=== PATIENT | male | born 1970 | race Caucasian/White ===

== ENCOUNTER 2019-01-21 20:44 | Emergency (ER) | payer BC, SELFPAY ==
[2019-01-21 20:49] VITALS: BP 152/97; PULSE 69; RESP 20; TEMP 36.1; O2SAT 95
--- NOTE | 2019-01-21 20:53 | W.ED.GENAD ---
Discharge Plan Disposition Patient Disposition: HOME Condition: Stable Discharge Details Chief Complaint: Urinary Clinical Impression: Kidney stone Primary Care Provider: Yue Kapoor ED Provider: Fadi Levi Home Meds and New Rx's Prescriptions: New ondansetron 4 mg tablet,disintegrating 4 mg PO Q8H PRN (Reason: nausea and vomiting) Qty: 30 RF: 0 Continued multivitamin Tablet 1 tab PO DAILY RF: 0 lisinopril 20 mg tablet 20 mg PO DAILY Qty: 90 RF: 3 sertraline 100 mg tablet 100 mg PO DAILY Qty: 90 RF: 3 flaxseed oil 1,000 MG capsule 1,000 mg PO DAILY RF: 0 Discharge Instructions Instructions: Kidney Stones (ED) Additional Instructions: you can take 1000mg tylenol and 600mg ibuprofen every 6 hours for pain as needed follow up with your primary care provider within 1-2 weeks if you have high fevers, severe worsening pain or persistent vomit return to the emergency department Medical Decision Making 48 yo male with hx of HTN and prior kidney stones comes in with acute onset suprapubic pain. States he felt well all day until 2-3 hours ago when he had sudden onset of pain loczlied to the suprapubic region. denies any back pain, changes in bowel habits, has had some discomfort with urination since this started. He has mild suprapubic pain on exam without guarding otherwise no other tenderness elsewhere. Suspect kidney stone, will obtain UA and also obtian ct to confirm. Has no periotneal signs or other findings on exam to suggest other surgical pathology such as mesenteric ischemia or appendicitis labs unremarkqble, CT shows kidney stone at distall right UVJ. He has no pain now. Declines opiates. Will d/c and offered urology referral but wants to see his pcp instead. Return precautions given Differential Diagnosis Differential Diagnosis: kidney stone, prostitis, pyelo HPI General Mode of arrival: ambulatory. Date/Time Provider Initiated Documentation: 01/21/19 20:45. Limitations to Documentation: no limitations. Information obtained by: patient. History of Present Illness 48 year old M presents to the emergency department with the chief complaint of suprapubic pain, described as moderate, with intensity rated at 5. Quality is described as stabbing, No relieving factors improve symptom(s), No exacerbating factors reported . Patient notes nausea/vomiting. Patient did receive the following treatments prior to arrival, none Related Data Home Medications Medication Instructions Recorded Confirmed flaxseed oil 1,000 mg PO DAILY 12/14/16 05/09/18 lisinopril 20 mg tablet 20 mg PO DAILY #90 tab 12/07/18 12/07/18 multivitamin 1 tab PO DAILY 12/07/18 sertraline 100 mg tablet 100 mg PO DAILY #90 tab-cap 12/07/18 12/07/18 ondansetron 4 mg PO Q8H PRN #30 tab 01/21/19 Previous Rx's Medication Instructions Recorded lisinopril 20 mg tablet 20 mg PO DAILY #90 tab 12/07/18 sertraline 100 mg tablet 100 mg PO DAILY #90 tab-cap 12/07/18 ondansetron 4 mg PO Q8H PRN #30 tab 01/21/19 Allergies Allergy/AdvReac Type Severity Reaction Status Date / Time pollen Allergy Unknown Uncoded 05/09/18 11:01 Review of Systems Review of Systems ROS Unobtainable: All systems reviewed & are unremarkable except as noted in HPI and below Constitutional Constitutional: Denies fever(s) and Denies weakness Cardiovascular Cardiovascular: Denies chest pain and Denies dyspnea Respiratory Respiratory: Denies cough and Denies dyspnea Integumentary/Breasts Skin/Breast: Denies rash Neurologic Neurologic: Denies weakness PFSH Family History Mother Depression Father Diabetes Social History (Updated 12/07/18 @ 15:26 by Reshma Pastor RN) Smoking/Tobacco Use Status: Never Alcohol Intake: current Alcohol Intake frequency: holidays/special occasions only Substance use type: does not use Number of Children: 2 current occupation: Director [employer] Current gender identity: male What type of physical activity do you participate in: none Do you feel safe at home: Yes Do you feel safe in your relationship?: Yes Exam Const General: no acute distress Orientation: alert HENMT Head: normal to inspection Ears: external ears normal General nose exam: external nose normal Mouth: moist mucous membranes Eyes General: appearance normal, both eyes and all related structures Neck Neck: normal visual inspection Resp Effort & Inspection: normal respiratory effort and able to speak in complete sentences Cardio Rate: regular rate GI Palpation: soft Skin General skin exam: no rashes or lesions noted Neuro General: alert and oriented x3 Extrem General: normal to inspection Psych Mental Status: mental status grossly normal
[2019-01-21 20:58] LABS: Bilirubin Negative (Negative); Blood Large (Negative); Clarity Clear (Clear); Glucose Negative (Negative); Ketones Negative (Negative); Leukocyte Esterase Negative (Negative); Nitrite Negative (Negative); Specific Gravity 1.025 (1.005-1.025); Urobilinogen 0.2 EU/dL (Up TO 0.2)
[2019-01-21] MEDS: Normal Saline Flush 10 ML SYR IVP (21:05)
[2019-01-21] MEDS: Normal Saline 1,000 ML 1000 ML IV (21:05)
[2019-01-21] MEDS: Ondansetron 4 MG/2 ML VIAL IVP (21:10)
[2019-01-21] MEDS: Ketorolac 15 MG/ML VIAL IVP (21:15)
--- NOTE | 2019-01-21 21:20 | DI.CT_ITS ---
EXAM: CT RENAL COLIC WO CLINICAL HISTORY: right flank pain. TECHNIQUE: COMPARISON: RENAL COLIC WO CONTRAST from 05/28/2012 FINDINGS: CT examination of the abdomen and pelvis was performed without contrast administration. Images obtai dory through the lung bases are unremarkable. Note is made of hepatic steatosis. Gallbladder and jewell e ducts are CT normal. Pancreas is unremarkable. Spleen appears normal. Low-attenuation 1 cm left adrenal nodule and possible tiny right adrenal nodule noted consistent with adenomas. Left kidney un remarkable. No left-sided obstruction or calcification. On the right there is moderate hydronephrosis and hydroureter to the level of the distal ureter where there is an obstructing 3 millimeter in diameter stone. Urinary bladder is essentially empty. Abdominal aorta is of normal diameter. No abdominal or pelvic adenopathy. No significant abdominal wall hernia seen. Appendix is normal. No evidence of diverticulitis or bowel obstruction. IMPRESSION: Obstructing 3 millimeter in diameter distal right ureteral calculus. No other significant findings.
[2019-01-21 21:26] LABS: Bacteria Rare HPF (Negative); C & S Indicated? No; Casts Negative LPF (Negative); Crystals Negative HPF (Negative); Epithelial Cells Negative HPF (Negative); Mucus Negative (Negative); Other Cells Negative (Negative); RBC >50 (0-2); WBC Negative HPF (0-5)
[2019-01-21 21:31] LABS: Abs Immature Grans 0.04 k/cumm (0.0-0.09); Absolute Basophil Count 0.03 k/cumm (0.0-0.2); Absolute Eosinophil Count 0.08 k/cumm (0.0-0.7); Absolute Lymphocyte Count 2.05 k/cumm (1.2-3.4); Absolute Monocyte Count 1.07 k/cumm (0.11-0.7); Absolute Neutrophil Count 8.31 k/cumm (1.2-6.7); Basophils % 0.3; Eosinophils % 0.7; HCT 42.7 % (40.0-50.0); HGB 14.7 g/dL (13.5-17.5); Immature Grans % 0.3; Lymphocytes % 17.7; Mean Corp. HGB Concentration 34.4 g/dL (32.0-36.0); Mean Corpuscular Hemoglobin 28.4 pg (27.0-33.0); Mean Corpuscular Volume 82.6 fL (80-95); Mean Platelet Volume 10.5 fL (8.0-11.0); Monocytes % 9.2; Neutrophils % 71.8; Platelet Count 212 x1000/uL (130-400); RBC 5.17 m/cumm (4.50-6.00); RBC Distribution Width 13.3 % (11.8-14.1); White Blood Cell Count 11.58 k/cumm (4.4-10.8)
[2019-01-21 21:43] LABS: ALT 42 U/L (16-63); AST 19 U/L (15-37); Albumin 3.9 g/dL (3.4-5.0); Alkaline Phosphatase 71 U/L (46-116); Anion Gap 10.2 mmol/L (3-11); BUN 14 mg/dL (7-18); Bilirubin, Total 0.8 mg/dL (0.2-1.0); CO2 24.8 mmol/L (21.0-32.0); CREATININE 1.02 mg/dL (0.70-1.30); Calcium 8.5 mg/dL (8.5-10.1); Chloride 104 mmol/L (98-107); Glucose 154 mg/dL (70-100); Potassium 3.4 mmol/L (3.5-5.1); Sodium 139 mmol/L (136-145); Total Protein 7.3 g/dL (6.4-8.2)
--- NOTE | 2019-01-21 21:54 | DI.VRAD_ITS ---
PROCEDURE INFORMATION: Exam: CT Abdomen And Pelvis Without Contrast Exam date and time: 01/21/2019 9:21 PM Clinical history: 48 years old, male; Prior surgery; Surgery date: 6+ months; Surgery type: Hernia repair; Patient HX: HX of kidney stones, R flank pain, vomiting TECHNIQUE: Imaging protocol: Computed tomography of the abdomen and pelvis without contrast. Radiation optimization: All CT scans at this facility use at least one of these dose optimization techniques: automated exposure control; mA and/or kV adjustment per patient size (includes targeted exams where dose is matched to clinical indication); or iterative reconstruction. COMPARISON: CT RENAL COLIC WO CONTRAST 05/28/2012 12:07 PM FINDINGS: Liver: Marked diffuse diminished attenuation of the liver consistent with significant fatty infiltration. Gallbladder and bile ducts: The gallbladder is unremarkable. Pancreas: Pancreas is unremarkable. Spleen: The spleen is normal. Adrenals: There is a 1.4 cm left adrenal nodule in the lateral aspect of the gland in addition to a 1.0 cm left adrenal nodule in the inferior aspect of the gland with low CT numbers consistent with an adenoma. The right adrenal gland is normal. Kidneys and ureters: There is mild to moderate obstructive uropathy on the right with dilatation of the right ureter up to the right UVJ were a 3 mm calculus is identified in the distal right ureter. There is mild bilateral perinephric stranding. Left kidney is otherwise unremarkable. Stomach and bowel: Unremarkable. No obstruction. No mucosal thickening. Appendix: No evidence of appendicitis. Intraperitoneal space: Unremarkable. No free air. No significant fluid collection. Vasculature: Unremarkable. No abdominal aortic aneurysm. Lymph nodes: No retroperitoneal lymphadenopathy is identified. Bladder: Unremarkable as visualized. Reproductive: Prostate is enlarged. Bones/joints: Unremarkable. No acute fracture. Soft tissues: There are small bilateral fat-containing inguinal hernias. IMPRESSION: 1. There is mild to moderate obstructive uropathy on the right with dilatation of the right ureter up to the right UVJ were a 3 mm calculus is identified in the distal right ureter. 2. Marked diminished attenuation liver consistent with significant fatty changes. Please correlate with the patient's clinical laboratory findings. 3. Left adrenal adenomas as described above. Dictated and Authenticated by: Dell Taveras MD. Ordering:SULLY Aponte MD
[2019-01-21 22:00] LABS: INR 1.1 (0.9-1.1); PTT Activated 22.7 sec (21.0-31.4); Prothrombin Time 10.9 sec (9.3-11.0)
== END 2019-01-21 22:32 | disposition home or self-care (01) ==
PROVIDERS: Emergency Provider Emergency Medicine; PCP Nurse Practitioner
DX: N20.1 Calculus of ureter (principal); I10 Essential (primary) hypertension; Z87.442 Personal history of urinary calculi
CPT/HCPCS: 36415; 80053; 96361; 96374; 96375; 99284; 74176; 81003; 81015; 85025; 85610; 85730; J1885; J2405

== ENCOUNTER 2019-03-20 14:56 | Emergency (ER) | payer BC, SELFPAY ==
[2019-03-20] VITALS (22 sets, daily range): BP systolic 139–157; BP diastolic 78–103; PULSE 61–89; RESP 8–29; TEMP 36; O2SAT 92–98
--- NOTE | 2019-03-20 15:26 | ED.GENADUL_ITS ---
Discharge Plan Disposition Patient Disposition: HOME Condition: Improving Discharge Details Chief Complaint: FlankPain Clinical Impression: Calculus of distal right ureter Primary Care Provider: Yue Kapoor ED Provider: Jose Theodore Home Meds and New Rx's Prescriptions: New tamsulosin [Flomax] 0.4 mg capsule 0.4 mg PO DAILY Qty: 5 RF: 0 Continued multivitamin Tablet 1 tab PO DAILY RF: 0 lisinopril 20 mg tablet 20 mg PO DAILY Qty: 90 RF: 3 sertraline 100 mg tablet 100 mg PO DAILY Qty: 90 RF: 3 flaxseed oil 1,000 MG capsule 1,000 mg PO DAILY RF: 0 Discharge Instructions Instructions: Kidney Stones (ED), How to Strain Your Urine (ED) Additional Instructions: Please strain your urine for a kidney stone and save it to be analyzed in the lab. We have asked care management to arrange a follow-up for you in urology clinic. Home to rest this evening. May continue small, frequent sips of fluids to maintain hydration. Please take Flomax once daily. Do not stand up quickly while taking this medication as can cause mild lightheadedness. May stop the medication if you feel you have passed a kidney stone. May use the provided hydrocodone with Tylenol in it if needed for severe pain. Alternatively, you may use ibuprofen 600 to 800 mg every 8 hours. Return to the emergency department for any acute concerns. Medical Decision Making 48-year-old male presents with abrupt onset of right flank pain that seem to progressed to suprapubic pain over hours time today. Associated with nausea. He did not note a fever. He states he has had 3 previous kidney stones. He arrives to the ED with a temp of 36, pulse 72, blood pressure 155/78 with ongoing discomfort. IV was placed, labs and urinalysis obtained, patient referred for noncontrast CT scan given high probability of recurrent ureteral calculus. CT reveals a 4.4 mm distal right ureteral calculus with moderate dilatation of the ureter and collecting system. Labs reveal a white blood cell count of 13, hematocrit 45, platelets 213. Chemistries a slight anion gap of 11, normal BUN and creatinine. Urinalysis with ketones and blood, negative nitrites and negative leuk esterase. Patient's pain improved with parenteral analgesia in the ED. He was given Flomax for ureteral dilatation/relaxation. He is improved. He is a good candidate for outpatient management. We will continue Flomax. He will follow- up with urology. He understands homecare and return precautions. HPI General Mode of arrival: ambulatory . Date/Time Provider Initiated Documentation: 03/20/19 14:57 . Limitations to Documentation: no limitations . Information obtained by: patient and family . History of Present Illness 48 year old M presents to the emergency department with the chief complaint of Right flank and suprapubic pain for hours, described as moderate and similar to prior episodes, and is localized to the back, abdomen, pelvis and right. Patient reports no radiation. Patient started experiencing this hour(s) and it has been intermittent. No relieving factors improve symptom(s), No exacerbating factors reported . Patient notes nausea/vomiting; denies fever/chills. Patient did receive the following treatments prior to arrival, NSAID Related Data Home Medications Medication Instructions Recorded Confirmed flaxseed oil 1,000 mg PO DAILY 12/14/16 03/20/19 lisinopril 20 mg tablet 20 mg PO DAILY #90 tab 12/07/18 03/20/19 multivitamin 1 tab PO DAILY 12/07/18 03/20/19 sertraline 100 mg tablet 100 mg PO DAILY #90 tab-cap 12/07/18 03/20/19 tamsulosin [Flomax] 0.4 mg PO DAILY #5 cap 03/20/19 Previous Rx's Medication Instructions Recorded lisinopril 20 mg tablet 20 mg PO DAILY #90 tab 12/07/18 sertraline 100 mg tablet 100 mg PO DAILY #90 tab-cap 12/07/18 tamsulosin [Flomax] 0.4 mg PO DAILY #5 cap 03/20/19 Allergies Allergy/AdvReac Type Severity Reaction Status Date / Time pollen Allergy Unknown Uncoded 03/20/19 15:12 General Stated Complaint: Abd Prob RUSSEL: 3 Review of Systems Narrative: 6 systems reviewed and otherwise negative [facility] Medical History Hepatic steatosis (Acute) Family History Mother Depression Father Diabetes Social History Smoking/Tobacco Use Status: Never Alcohol Intake: current Alcohol Intake frequency: holidays/special occasions only Substance use type: does not use Number of Children: 2 current occupation: Vice President [employer] Current gender identity: male What type of physical activity do you participate in: none Do you feel safe at home: Yes Do you feel safe in your relationship?: Yes Exam Narrative Exam Narrative: GEN: awake, alert, oriented 3. Pleasant, well groomed, interactive. HEAD: Normocephalic, atraumatic ENT: Mucous membranes moist, oropharynx unremarkable, External ear exam unremarkable EYES: PERRL, EOMI NECK: Full ROM, no MARGARET, no menigismus CHEST/RESP: Nontender, clear to auscultation bilateral, no wheeze/rhonchi/rales CARDIOVASCULAR: RRR, no murmur, rub julius. 2+ Rad pulse bilateral ABDOMEN: Soft, mild suprapubic tenderness to palpation without rebound or guarding, no mass. +Bowel sounds. Right flank tenderness to percussion, minimal EXT: Full ROM, no edema, no rash Neuro: Grossly normal neurologic exam, conversant, interactive. Psych: Speech fluent, thoughts congruent, affect normal Course Vital Signs Vital signs: Vital Signs Temperature 36 C L 03/20/19 15:07 Pulse 72 03/20/19 15:07 Respiratory Rate 16 03/20/19 15:07 Blood Pressure 155/78 H 03/20/19 15:07 Pulse Oximetry 97 03/20/19 15:07 Temperature 36 C L 03/20/19 15:07 Temperature Source Skin 03/20/19 15:07 Pulse 72 03/20/19 15:07 Respiratory Rate 16 03/20/19 15:07 Respiratory Effort Non-Labored 03/20/19 15:07 Blood Pressure 155/78 H 03/20/19 15:07 Blood Pressure Position Sitting 03/20/19 15:07 Pulse Oximetry 97 03/20/19 15:07 Pain Level 3 03/20/19 15:07
[2019-03-20] MEDS: Normal Saline 1,000 ML 150 ML IV (15:30)
[2019-03-20] MEDS: Ketorolac 15 MG/ML VIAL IVP (15:40)
[2019-03-20] MEDS: Ondansetron 4 MG/2 ML VIAL IVP ×2 (15:40→16:26)
[2019-03-20 15:56] LABS: Abs Immature Grans 0.04 k/cumm (0.0-0.09); Absolute Lymphocyte Count 0.75 k/cumm (1.2-3.4); Absolute Monocyte Count 0.72 k/cumm (0.11-0.7); Basophils % 0.1; HCT 45.8 % (40.0-50.0); HGB 15.5 g/dL (13.5-17.5); Immature Grans % 0.3; Lymphocytes % 5.4; Mean Corp. HGB Concentration 33.8 g/dL (32.0-36.0); Mean Corpuscular Hemoglobin 27.8 pg (27.0-33.0); Mean Corpuscular Volume 82.2 fL (80-95); Mean Platelet Volume 10.8 fL (8.0-11.0); Monocytes % 5.2; Platelet Count 213 x1000/uL (130-400); RBC 5.57 m/cumm (4.50-6.00); RBC Distribution Width 12.9 % (11.8-14.1); White Blood Cell Count 13.82 k/cumm (4.4-10.8)
[2019-03-20 15:59] LABS: Absolute Basophil Count 0.01 k/cumm (0.0-0.2)
--- NOTE | 2019-03-20 16:03 | DI.CT_ITS ---
EXAM: CT RENAL COLIC WO CLINICAL HISTORY: R flank and suprapubic pain TECHNIQUE: Imaging Protocol: Axial computed tomography images with coronal and sagittal reformatted images were created and reviewed. CONTRAST MATERIAL: Intravenous: Omnipaque 350 Contrast volume:0 mL contrast route:IV - Oral: No COMPARISON: CT RENAL COLIC WO from 01/21/2019 FINDINGS: ABDOMEN: Lung Bases: Normal where visualized. Liver: There is hepatic steatosis no measurable mass. Gallbladder and biliary tract: No radiodense calculus or dilation. Pancreas: Normal density, no abnormal calcifications or inflammatory process. Spleen: Normal. Kidneys: Normal size, contour and axis. There is a 5 millimeter stone at the right ureterovesicular j unction causing moderate hydronephrosis. No masses seen. Adrenal glands: No masses seen. Abdominal Aorta: Abdominal portion non-dilated. PELVIS: Bladder: Symmetric distention, no gross wall thickening. Reproductive organs: Unremarkable. Bowel: No obstruction or bowel wall thickening. Peritoneal cavity: No ascites, collection or mesenteric inflammatory response. Bones: Within normal limits. IMPRESSION: 5 millimeter right UVJ stone causing moderate hydronephrosis. DATA REPOSITORY: All CT scans at this facility are submitted to the National Radiology Data Registry (NRDR) Dose Index Registry (DIR) with the [employer] (ACR). RADIATION OPTIMIZATION: All CT scans at this facility use at least one of these dose optimization te chniques: automated exposure control; mA and/or kV adjustment per patient size (includes targeted exa ms where dose is matched to clinical indication); or iterative reconstruction.
[2019-03-20 16:17] LABS: ALT 49 U/L (16-63); AST 22 U/L (15-37); Albumin 4.2 g/dL (3.4-5.0); Alkaline Phosphatase 70 U/L (46-116); Anion Gap 11.7 mmol/L (3-11); BUN 15 mg/dL (7-18); Bilirubin, Total 1.2 mg/dL (0.2-1.0); CO2 25.3 mmol/L (21.0-32.0); Calcium 8.8 mg/dL (8.5-10.1); Chloride 103 mmol/L (98-107); Glucose 168 mg/dL (74-106); Potassium 3.9 mmol/L (3.5-5.1); Sodium 140 mmol/L (136-145); Total Protein 7.8 g/dL (6.4-8.2)
[2019-03-20] MEDS: HYDROmorphone 2 MG/ML VIAL 0.5 MG IVP (16:26)
--- NOTE | 2019-03-20 16:30 | DI.VRAD_ITS ---
PROCEDURE INFORMATION: Exam: CT Abdomen And Pelvis Without Contrast Exam date and time: 03/20/2019 3:26 PM Age: 48 years old Clinical history: Other: RT flank pain and suprapubic pain. ; Patient HX: HX of kidney stones TECHNIQUE: Imaging protocol: Computed tomography of the abdomen and pelvis without contrast. Radiation optimization: All CT scans at this facility use at least one of these dose optimization techniques: automated exposure control; mA and/or kV adjustment per patient size (includes targeted exams where dose is matched to clinical indication); or iterative reconstruction. COMPARISON: CT RENAL COLIC WO 01/21/2019 9:14 PM FINDINGS: Liver: Hepatic steatosis Gallbladder and bile ducts: Normal. No calcified stones. No ductal dilation. Pancreas: Normal. No ductal dilation. Spleen: Normal. No splenomegaly. Adrenals: Normal. No mass. Kidneys and ureters: 5x 4.4 millimeter distal RIGHT ureteral calculus causes moderate dilatation of the RIGHT ureter, and RIGHT collecting system. The RIGHT kidney is edematous and there is RIGHT perirenal stranding. Stomach and bowel: Unremarkable. No obstruction. No mucosal thickening. Appendix: Normal appendix Intraperitoneal space: Unremarkable. No free air. No significant fluid collection. Vasculature: Unremarkable. No abdominal aortic aneurysm. Lymph nodes: Unremarkable. No enlarged lymph nodes. Bladder: Unremarkable as visualized. Reproductive: Unremarkable as visualized. Bones/joints: Unremarkable. No acute fracture. Soft tissues: Unremarkable. IMPRESSION: 5 x4.4 millimeter distal RIGHT ureteral calculus causes moderate dilatation of the RIGHT ureter, and RIGHT collecting system. The RIGHT kidney is edematous and there is RIGHT perirenal stranding. Dictated and Authenticated by: Sarah Mckeon MD. Ordering:MARSHA Garcia MD
[2019-03-20] MEDS: HYDROmorphone 2 MG/ML VIAL (16:51)
[2019-03-20] MEDS: Normal Saline 50 ML (16:53)
[2019-03-20 18:02] LABS: Bilirubin Negative (Negative); Blood Trace-intact (Negative); Clarity Sl Cloudy (Clear); Glucose Negative (Negative); Ketones 40 mg/dL (Negative); Leukocyte Esterase Negative (Negative); Nitrite Negative (Negative); Urobilinogen 0.2 EU/dL (Up TO 0.2); pH 7.5 (5-8)
[2019-03-20 18:09] LABS: Epithelial Cells Negative HPF (Negative); WBC Negative HPF (0-5)
[2019-03-20 18:10] LABS: Bacteria Negative HPF (Negative); C & S Indicated? No; Crystals Few Amorphous HPF (Negative); Mucus Negative (Negative)
--- NOTE | 2019-03-20 18:20 | NUR.NOTE ---
Nursing Note: faxed referal to urology on 03/20/19
[2019-03-20] MEDS: Tamsulosin 0.4 MG CAPCR PO (18:37)
== END 2019-03-20 18:45 | disposition home or self-care (01) ==
PROVIDERS: Emergency Provider Emergency Medicine; PCP Nurse Practitioner
DX: N13.2 Hydronephrosis with renal and ureteral calculous obstruction (principal); I10 Essential (primary) hypertension; Z87.442 Personal history of urinary calculi
CPT/HCPCS: 36415; 80053; 96361; 96374; 96375; 96376; 99284; 74176; 81003; 81015; 85025; J1885; J2405

== ENCOUNTER 2019-09-21 02:43 | Outpatient (CLI) | payer BC, SELFPAY ==
--- NOTE | 2019-09-21 08:15 | DI.CT_ITS ---
EXAM: CT ABDOMEN WO/W CLINICAL HISTORY: f/u 2 adrenal nodules,LT ADRENAL MASS,E27.8 TECHNIQUE: Imaging Protocol: Axial computed tomography images with coronal and sagittal reformatted images were created and reviewed CONTRAST MATERIAL: Intravenous: Omnipaque 350 Contrast volume:100 mL Oral: No COMPARISON: CT CT RENAL COLIC WO from 01/21/[address] RENAL COLIC WO from 03/20/2019 FINDINGS: ABDOMEN: Lung Bases: Normal where visualized. Liver: Hepatic steatosis. No measurable mass. Portal, Superior Mesenteric, and Splenic Veins: Unremarkable. Gallbladder and Biliary Tract: No radiodense calculus or dilation. Pancreas: Normal density, no abnormal calcifications or inflammatory process. Spleen: Normal. Adrenals: Normal right adrenal gland. Two stable left adrenal nodules. The larger nodule measures 1 .4 cm. The smaller nodule measures 1.0 cm. Kidneys: Normal size, contour and axis. No radiodense stones or obstructive uropathy. No masses seen. Abdominal Aorta: Abdominal portion non-dilated. Mild atherosclerosis. Bowel: No obstruction or bowel wall thickening. Peritoneal Cavity: No ascites, collection or mesenteric inflammatory response. Lymph Nodes: Within normal limits. Bones: Unremarkable. Soft Tissues: Unremarkable. Portions of the anterior abdominal wall were not included. IMPRESSION: Stable left adrenal nodules. Hepatic steatosis. RADIATION DOSE DELIVERED: 2,044.79mGy.cm Total DLP DATA REPOSITORY: All CT scans at this facility are submitted to the National Radiology Data Registry (NRDR) Dose Index Registry (DIR) with the [employer] (ACR). RADIATION OPTIMIZATION: All CT scans at this facility use at least one of these dose optimization te chniques: automated exposure control; mA and/or kV adjustment per patient size (includes targeted exa ms where dose is matched to clinical indication); or iterative reconstruction.
[2019-09-21 13:49] LABS: ALT 49 U/L (16-63); AST 17 U/L (15-37); Albumin 3.8 g/dL (3.4-5.0); Alkaline Phosphatase 66 U/L (46-116); Anion Gap 8.8 mmol/L (3-11); BUN 11 mg/dL (7-18); Bilirubin, Total 0.9 mg/dL (0.2-1.0); CO2 26.2 mmol/L (21.0-32.0); CREATININE 1.05 mg/dL (0.70-1.30); Calcium 8.6 mg/dL (8.5-10.1); Calculated LDL 72 mg/dL (<100); Chloride 107 mmol/L (98-107); Cholesterol 143 mg/dL (<200); Glucose 131 mg/dL (74-106); HDL Cholesterol 25 mg/dL (40-60); Potassium 3.5 mmol/L (3.5-5.1); Sodium 142 mmol/L (136-145); Total Protein 6.9 g/dL (6.4-8.2); Triglyceride 233 mg/dL (<150)
[2019-09-21 14:05] LABS: Hemoglobin A1C 6.4 % (3.8-5.6)
[2019-09-21] MEDS: Normal Saline - Diluent 50 ML VIAL IV (14:41)
[2019-09-21] MEDS: Omnipaque 350 MG/ML 100 ML BTL IJ (14:42)
== END 2019-09-21 03:03 ==
PROVIDERS: PCP Nurse Practitioner; Visit Provider Nurse Practitioner
DX: E27.8 Other specified disorders of adrenal gland (principal); K76.0 Fatty (change of) liver, not elsewhere classified; I10 Essential (primary) hypertension; R73.01 Impaired fasting glucose
CPT/HCPCS: 80053; 80061; 74170; 82565; 83036; J3490

== ENCOUNTER 2020-01-02 09:07 | Emergency (ER) | payer BC, SELFPAY ==
[2020-01-02 09:11] VITALS: BP 135/87; PULSE 89; RESP 18; TEMP 36.5; O2SAT 96
--- NOTE | 2020-01-02 09:20 | ED.GENADUL_ITS ---
Discharge Plan Disposition Patient Disposition: HOME Condition: Stable Discharge Details Clinical Impression: Cholelithiases Primary Care Provider: Yue Kapoor ED Provider: Diego Ritchie Home Meds and New Rx's Prescriptions: Continued cholecalciferol (vitamin D3) 4,000 unit capsule 4,000 unit PO DAILY RF: 0 flaxseed oil 1,000 MG capsule 1,000 mg PO DAILY RF: 0 lisinopril 20 mg tablet 20 mg PO DAILY Qty: 90 RF: 3 sertraline 100 mg tablet 100 mg PO DAILY Qty: 90 RF: 3 Discharge Instructions Instructions: Gallstones (ED) Additional Instructions: [id number] Tylenol and/or Motrin as directed for discomfort. Dietary restrictions as we discussed. Please watch for new or worsening symptoms and return immediately to the ER. Otherwise I recommend reaching out to the surgical team later today or tomorrow for prompt outpatient reevaluation. Referrals: Rosanne Hawkins, [OSTEOPATHIC DOCTOR] - Medical Decision Making 49-year-old gentleman with a history of hypertension and depression presents with right upper quadrant, right lower chest discomfort that began yesterday. He reports that positioning can make the pain both worse or better. Taking a deep breath makes the pain worse. Clinically he has a positive Suero sign. Patient appears well, nontoxic, blood pressure 135/87. Pulse 89, he is afebrile and satting 96% on room air. Believe the most likely diagnosis is cholelithiasis, cholecystitis, however certainly cannot exclude hepatitis, gastritis, pancreatitis, peptic ulcers, atypical chest pain. Pain is on the right side, not ripping or tearing, low suspicion for dissection. Given the PERC criteria, will not obtain d-dimer, extremely low suspicion of PE. Will obtain IV access, obtain CBC, CMP, lipase, urinalysis, troponin and EKG. Will obtain ultrasound of the right upper quadrant abdomen. Patient is afebrile, white count is normal at 8.68. Total bilirubin is slightly elevated at 1.3, LFTs otherwise unremarkable. Initial troponin less than 0.05. Ultrasound reveals cholelithiasis with a positive sonographic Suero sign but no evidence of acute cholecystitis. Hepatomegaly and fatty liver disease noted Given his ultrasound findings and right upper quadrant discomfort I will discuss the case with our surgical team. Case discussed with Dr. Hawkins, recommends controlling the patient's pain and she will be happy to follow the patient in her office. Surgical intervention not required today. Finding, my conversation with Dr. Hawkins with patient. Will provide 30 IV Toradol and reassess. Upon reevaluation patient is pain-free. Able to move freely without any exacerbation of his discomfort. We discussed strict return precautions, otherwise he will contact the surgical office later today or tomorrow for prompt outpatient reevaluation. We also discussed dietary restrictions. Patient has no additional questions or concerns Medical Records Medical records reviewed: Yes I reviewed the patient's medical records. Lab Data Lab results reviewed: Yes I reviewed the patient's lab results. Lab results narrative: Laboratory Tests Range/Units 01/02/20 01/02/20 01/02/20 09:50 09:50 09:50 WBC (4.4-10.8) 10^3/uL 8.68 RBC (4.36-5.78) 10^6/uL 5.69 Hgb (13.5-17.5) g/dL 15.6 Hct (40.0-50.0) % 47.7 MCV (80-95) fL 83.8 MCH (27.0-33.0) pg 27.4 MCHC (32.0-36.0) % 32.7 RDW (11.8-14.1) % 12.6 Plt Count (130-400) 10^3/uL 208 MPV (8.0-11.0) fL 10.4 Immature Gran % 0.3 Neutrophils % 74.7 Lymphocytes % 15.1 Monocytes % 9.1 Eosinophils % 0.3 Basophils % 0.5 Nucleated RBC % % 0 Absolute Neutrophils (1.2-6.7) 10^3/uL 6.48 Absolute Lymphocytes (1.2-3.4) 10^3/uL 1.31 Absolute Monocytes (0.1-0.8) 10^3/uL 0.79 Absolute Eosinophils (0.0-0.7) 10^3/uL 0.03 Absolute Basophils (0.0-0.2) 10^3/uL 0.04 Sodium (136-145) mmol/L 138 Potassium (3.5-5.1) mmol/L 4.0 Chloride (98-107) mmol/L 103 Carbon Dioxide (21.0-32.0) mmol/L 24.8 Anion Gap (3-11) mmol/L 10.2 BUN (7-18) mg/dL 14 Creatinine (0.70-1.30) mg/dL 0.91 Estimated GFR/1.73 m2 (mL/min/1.73m2) >= 60.00 Glucose (74-106) mg/dL 130 H Calcium (8.5-10.1) mg/dL 8.9 Total Bilirubin (0.2-1.0) mg/dL 1.3 H AST (15-37) U/L 17 ALT (16-63) U/L 39 Alkaline Phosphatase (46-116) U/L 66 Troponin I (<0.06) ng/mL < 0.05 Total Protein (6.4-8.2) g/dL 7.7 Albumin (3.4-5.0) g/dL 4.0 Lipase (73-393) U/L 92 Urine Color (Yellow) Yellow Urine Clarity (Clear) Clear Urine pH (5-8) 5.5 Ur Specific [place] (1.005-1.025) >= 1.030 H Urine Protein (Negative) mg/dL Negative Urine Ketones (Negative) mg/dL Negative Urine Blood (Negative) Negative Urine Nitrite (Negative) Negative Urine Bilirubin (Negative) Negative Urine Urobilinogen (Up TO 0.2) EU/dL 0.2 Ur Leukocyte Esterase (Negative) Negative Urine Glucose (Negative) mg/dL Negative ECG Data Attestation: I personally reviewed and interpreted this ECG (s) as follows: Interpretation: Please see official report by Dr. Theodore. Sinus rhythm, ventricular rate of 77. No STEMI HPI General Mode of arrival: ambulatory . Date/Time Provider Initiated Documentation: 01/02/20 09:17 . Limitations to Documentation: no limitations . Information obtained by: patient . HPI Narrative: This is a 49-year-old gentleman with history of hypertension, depression, presenting to the ER today at the request of his primary care office. He developed right anterior lower chest wall, right upper quadrant abdominal discomfort that began yesterday afternoon. Is intermittent, sharp and crampy in nature. Pain can be made both worse and better with certain positions and movement. Reports that taking a deep breath does worsen his discomfort. He denies any fever, shortness of breath, cough, radiation of pain into his back, nausea, vomiting, diarrhea, constipation. He denies any change of his symptoms with food. Ate dinner last night normally, did not have breakfast today. Reports a history of umbilical hernia surgery but no other abdominal surgeries. Patient denies history of smoking, alcohol use, drug use. Related Data Home Medications Medication Instructions Recorded Confirmed flaxseed oil 1,000 mg PO DAILY 12/14/16 01/02/20 cholecalciferol (vitamin D3) 100 4,000 unit PO DAILY 06/07/19 01/02/20 mcg (4,000 unit) capsule lisinopril 20 mg tablet 20 mg PO DAILY #90 tab 12/14/19 01/02/20 sertraline 100 mg tablet 100 mg PO DAILY #90 tab-cap 12/14/19 01/02/20 Previous Rx's Medication Instructions Recorded lisinopril 20 mg tablet 20 mg PO DAILY #90 tab 12/14/19 sertraline 100 mg tablet 100 mg PO DAILY #90 tab-cap 12/14/19 Allergies Allergy/AdvReac Type Severity Reaction Status Date / Time pollen Allergy Unknown Uncoded 01/02/20 09:15 General Stated Complaint: Chest/Rib RUSSEL: 3 Review of Systems Constitutional Constitutional: Denies fatigue, Denies fever(s) and Denies headache(s) ENT Ears, Nose, Mouth, and Throat: Denies headache(s) and Denies neck pain Cardiovascular Cardiovascular: Reports chest pain and Denies dyspnea Respiratory Respiratory: Denies cough and Denies dyspnea Gastrointestinal Gastrointestinal: Reports abdominal pain, Denies constipation, Denies diarrhea, Denies nausea and Denies vomiting Genitourinary Genitourinary: Denies difficulty urinating Musculoskeletal Musculoskeletal: Denies back pain and Denies neck pain Integumentary/Breasts Skin/Breast: Denies rash Neurologic Neurologic: Denies headache(s) Endocrine Endocrine: Denies fatigue [facility] Medical History Depression (10/10/13) Hepatic steatosis Low HDL (under 40) Pre-diabetes Family History Mother Depression Father Diabetes Social History Smoking/Tobacco Use Status: Never Alcohol Intake: current Alcohol Intake frequency: holidays/special occasions only Substance use type: does not use Number of Children: 2 current occupation: [employer] Current gender identity: male What type of physical activity do you participate in: none Working smoke detector in home: Yes Fire extinguisher in home: Yes Carbon monox detector in home: Yes Do you feel safe at home: Yes Do you feel safe in your relationship?: Yes Exam Const General: cooperative, healthy appearing, comfortable and no acute distress Orientation: alert and awake HENMT Head: normal to inspection, normocephalic and atraumatic Mouth: moist mucous membranes Eyes Conjunctivae: conjunctivae normal Sclera: sclerae normal Neck Neck: normal visual inspection, full ROM, trachea midline and supple Resp Effort & Inspection: normal respiratory effort and able to speak in complete sentences Auscultation: clear to auscultation bilaterally Cardio Rate: regular rate Rhythm: regular rhythm GI Inspection: normal to inspection and obesity Palpation: soft, not firm, guarding in the RUQ, not rigid and tender in the RUQ Auscultation: normal bowel sounds Back/Spine/Pelvis Back: No back tenderness Skin General skin exam: no rashes or lesions noted Neuro General: patient alert, patient awake, moves all extremities and no focal motor deficits Sensory Exam: no sensory deficits noted Extrem General: normal to inspection, full ROM, no pedal edema and no calf tenderness Psych Appearance: grossly normal Mental Status: mental status grossly normal Course Vital Signs Vital signs: Vital Signs Temperature 36.5 C 01/02/20 09:11 Pulse 89 01/02/20 09:11 Respiratory Rate 18 01/02/20 09:11 Blood Pressure 135/87 01/02/20 09:11 Pulse Oximetry 96 01/02/20 09:11 Temperature 36.5 C 01/02/20 09:11 Temperature Source Skin 01/02/20 09:11 Pulse 89 01/02/20 09:11 Respiratory Rate 18 01/02/20 09:11 Respiratory Effort 01/02/20 09:16 Blood Pressure 135/87 01/02/20 09:11 Blood Pressure Position Sitting 01/02/20 09:11 Pulse Oximetry 96 01/02/20 09:11 Oxygen Delivery Method Room Air 01/02/20 09:11 Oxygen Flow Rate 0 01/02/20 09:11 Pain Level 7 01/02/20 09:11 Comment 01/02/20 09:11
--- NOTE | 2020-01-02 09:30 | DI.US_ITS ---
EXAM: US ABDOMEN CLINICAL HISTORY: RUQ pain TECHNIQUE: Ultrasound abdomen performed using standard protocol. Examination is limited due to kely ent body habitus and overlying bowel gas. COMPARISON: CT CT ABDOMEN WO/W from 09/21/2019 FINDINGS: ABDOMINAL AORTA AND IVC: Visualized portions normal caliber. PANCREAS: Normal where visualized. LIVER: Diffuse increased echogenicity. Hepatopedal flow in the Portal Vein. The liver is 21.6 cm in length. GALLBLADDER: Multiple gallstones. No evidence of wall thickening. No pericholecystic fluid identifie d. BILIARY SYSTEM: Common bile duct measures < 7 mm. No intrahepatic biliary ductal dilation. BENNETT'S SIGN: Positive. KIDNEYS: Kidneys are symmetric in size. No evidence of renal calculi. No evidence of hydronephrosis. No renal mass or cyst identified. SPLEEN: Not enlarged. ASCITES: None seen. IMPRESSION: 1. Cholelithiasis. No sonographic evidence of acute cholecystitis. 2. Hepatomegaly and fatty liver. 3. Findings were discussed with the emergency department on the date of the examination. DATA REPOSITORY:
--- NOTE | 2020-01-02 09:30 | RT.EKG_ITS ---
APPROVED REPORT Exam: Resting ECG Patient Location: E HR:77 bpm ECG Measurements Heart Rate 77 AXIS VA 151 P 27 QRSd 83 QRS 19 QT 368 T 33 QTc 417 Conclusion Sinus rhythm...normal P axis, V-rate 60- 99
[2020-01-02] MEDS: Normal Saline Flush 10 ML SYR IVP (09:45)
[2020-01-02 09:56] LABS: Abs Immature Grans 0.03 10^3/uL (0.0-0.06); Absolute Basophil Count 0.04 10^3/uL (0.0-0.2); Absolute Eosinophil Count 0.03 10^3/uL (0.0-0.7); Absolute Lymphocyte Count 1.31 10^3/uL (1.2-3.4); Absolute Monocyte Count 0.79 10^3/uL (0.1-0.8); Absolute Neutrophil Count 6.48 10^3/uL (1.2-6.7); Basophils % 0.5; Eosinophils % 0.3; HCT 47.7 % (40.0-50.0); HGB 15.6 g/dL (13.5-17.5); Immature Grans % 0.3; Lymphocytes % 15.1; MCH 27.4 pg (27.0-33.0); MCHC 32.7 % (32.0-36.0); MCV 83.8 fL (80-95); MPV 10.4 fL (8.0-11.0); Monocytes % 9.1; Neutrophils % 74.7; Nucleated RBC 0 %; Platelet Count 208 10^3/uL (130-400); RBC 5.69 10^6/uL (4.36-5.78); RDW 12.6 % (11.8-14.1); RDW-SD 37.7 fL; WBC 8.68 10^3/uL (4.4-10.8)
[2020-01-02 10:02] LABS: Bilirubin Negative (Negative); Blood Negative (Negative); Clarity Clear (Clear); Glucose Negative (Negative); Ketones Negative (Negative); Leukocyte Esterase Negative (Negative); Nitrite Negative (Negative); Specific Gravity >= 1.030 (1.005-1.025); Urobilinogen 0.2 EU/dL (Up TO 0.2); pH 5.5 (5-8)
[2020-01-02 10:23] LABS: ALT 39 U/L (16-63); AST 17 U/L (15-37); Alkaline Phosphatase 66 U/L (46-116); Anion Gap 10.2 mmol/L (3-11); BUN 14 mg/dL (7-18); Bilirubin, Total 1.3 mg/dL (0.2-1.0); CO2 24.8 mmol/L (21.0-32.0); CREATININE 0.91 mg/dL (0.70-1.30); Calcium 8.9 mg/dL (8.5-10.1); Chloride 103 mmol/L (98-107); Glucose 130 mg/dL (74-106); Lipase 92 U/L (73-393); Sodium 138 mmol/L (136-145); Total Protein 7.7 g/dL (6.4-8.2)
[2020-01-02 10:25] LABS: Troponin I < 0.05 ng/mL (<0.06)
[2020-01-02 10:43] VITALS: BP 122/71; PULSE 77; PULSE 82; RESP 27; O2SAT 94
[2020-01-02 10:44] VITALS: PULSE 80; RESP 23; O2SAT 95
[2020-01-02 10:45] VITALS: BP 126/77; PULSE 77; PULSE 80; RESP 22; O2SAT 92
[2020-01-02 10:50] VITALS: PULSE 82; RESP 36; O2SAT 95
[2020-01-02] MEDS: Ketorolac 30 MG/ML VIAL IVP (11:14)
[2020-01-02 11:48] VITALS: BP 126/77; PULSE 77; RESP 36; TEMP 36.5; O2SAT 95
== END 2020-01-02 11:35 | disposition home or self-care (01) ==
PROVIDERS: Emergency Provider Physician Assistant; PCP Nurse Practitioner
DX: K80.20 Calculus of gallbladder without cholecystitis without obstruction (principal); I10 Essential (primary) hypertension
CPT/HCPCS: 36415; 80053; 83690; 93005; 96374; 99285; 76700; 81003; 84484; 85025; 93010; 99284; J1885

== ENCOUNTER 2020-01-14 07:30 | Outpatient (CLI) | payer BC, SELFPAY ==
[2020-01-15 12:34] LABS: COVID-19 RT-PCR Result NEGATIVE (Negative)
== END 2020-01-14 07:50 ==
PROVIDERS: PCP Nurse Practitioner; Visit Provider Surgery
DX: Z11.59 Encounter for screening for other viral diseases (principal); Z01.818 Encounter for other preprocedural examination
CPT/HCPCS: U0003

== ENCOUNTER 2020-01-16 08:31 | Day surgery (SDC) | payer BC, SELFPAY ==
[2020-01-16] VITALS (11 sets, daily range): BP systolic 112–126; BP diastolic 63–84; PULSE 67–80; RESP 14–29; TEMP 36.5–36.8; O2SAT 91–98
[2020-01-16] MEDS: Lactated Ringers 1,000 ML 80 ML IV (09:13)
[2020-01-16] MEDS: Acetaminophen 500 MG TAB 1000 MG PO ×2 (09:14→14:58)
[2020-01-16] MEDS: Celecoxib 200 MG CAP PO (09:14)
[2020-01-16] MEDS: AMPICILLIN/SULBACTAM 3 GM in Normal Saline 100 ML IVPB (10:23)
[2020-01-16] MEDS: Lidocaine 1% Multi-Dose 50 ML VIAL (10:43)
[2020-01-16] MEDS: Cellulose,Oxidized 4X8 1 PACKET MC ×2 (11:21→11:36)
--- NOTE | 2020-01-16 11:26 | GB_PTH ---
PATIENT: Steven Moctezuma JR LOC: [facility] U#:[id number] AGE/SX: 49/M ROOM: RE01/16/[address]: Debbie Quevedo MD : [id number] BED: DIS: 01/16/2020 SPEC #: [id number] RECD: 01/16/20 17:02 STATUS: RYAN REBernardo #: [id number] BRIJESH: 01/16/20 11:[address]: Debbie Quevedo DEPT: Surgical Specimen RECD BY: Ally Padilla ENTERED: 01/16/20 17:02 SP TYPE: GB OTHR DR: Yue Kapoor APRN Tissues: 1 - GALLBLADDER Procedures: GROSS AND MICRO LEVEL 3 Comments: [id number]
--- NOTE | 2020-01-16 12:07 | PDOC.DSDIS_ITS ---
Discharge Plan Disposition Patient Disposition: HOME Condition: Good Discharge Details Reason For Visit: Biliary Cholic Attending Provider: Debbie Quevedo Primary Care Provider: Yue Kapoor Home Meds and New Rx's Prescriptions: New oxycodone 5 mg tablet 5 mg PO Q6H PRN (Reason: pain) Qty: 14 RF: 0 Continued (DME) crutch Misc See Rx Instructions .ROUTE .MEDSUPPLY Qty: 2 RF: 0 cholecalciferol (vitamin D3) 4,000 unit capsule 4,000 unit PO DAILY RF: 0 flaxseed oil 1,000 MG capsule 1,000 mg PO DAILY RF: 0 lisinopril 20 mg tablet 20 mg PO DAILY Qty: 90 RF: 3 sertraline 100 mg tablet 100 mg PO DAILY Qty: 90 RF: 3 acetaminophen 500 mg Tablet 1,000 mg PO Q6H PRNRF: 0 ibuprofen 200 mg Tablet 400 mg PO Q6H PRNRF: 0 Discharge Instructions Additional Instructions: Activity at Home after surgery: 1. Make sure you walk outside at least 4 times per day 2. You should be able to climb a flight of stairs 3. No driving while in pain or taking pain medications 4. No strenuous activity or heavy lifting for 2 weeks (laparoscopic surgery) Diet, Nutrition, & wound healin. Avoid alcohol until after you are recovered from your surgery 2. Make sure to eat plenty of lean protein (meat, fish, eggs, cottage cheese, beans) 3. Eat a variety of fruits and vegetables. Eat plenty of high fiber foods to avoid constipation. 4. Drink plenty of liquids to stay hydrated and avoid constipation Pain Medications: 1. Tylenol 1000 mg every 6 hours as needed and Ibuprofen 600 mg every 6 hours as needed. You may alternate between the 2 medications 2. If a narcotic has been prescribed take as directed only for breakthrough pain For Constipation: 1. Take Milk of Magnesia or MiraLax as needed for constipation Other: 1. You may shower daily. Do not scrub the incisions 2. Do not soak the incisions for 1 week 3. You may alternate ice and heat as needed for pain and swelling Wound Care: 1. Keep the incisions clean and dry Please call our office if you develop: 1. Fevers >101.5 2. Nausea or Vomiting 3. Worsening pain 4. Redness and thick discharge from the wounds If after hours please call the Hospital at and ask to speak to the on-call surgeon Referrals: Debbie Quevedo MD [ [facility] STAFF PHYSICIAN] - 01/29/20 10:00 am Activity:: No lifting >20 lb x 4 wks Remove Dressings/Wound Care:: 24 hours Shower/Bathe:: 24 hours Diet:: low fat Discharge Orders Discharge Orders: Discharge Order (Routine); Ordered 01/16/20 Ordered By: Debbie Quevedo DS: Diagnosis Discharge Diagnosis (1) Cholelithiases: Status: Acute
--- NOTE | 2020-01-16 12:19 | W.PM.OP ---
Date of service: 01/16/20 Time of Service: 12:19 Operative Note Operative Note DATE OF PROCEDURE: 01/16/20 PRE-OP DIAGNOSIS: Cholelithiasis and Biliary Cholic POST-OP DIAGNOSIS: same PROCEDURE: Laparoscopic Cholecystectomy SURGEON: Debbie Quevedo WIND SITE MANAGER: Diana Aguayo ANESTHESIA: GETA (ASA 2/ Vasu Otero CRNA) ESTIMATED BLOOD LOSS: 75 PATHOLOGY: other (Gallbladder and contents) COMPLICATIONS: None Patient was transported to: PACU Patient's condition: stable Indications: is a pleasant 49-year-old gentleman who is referred from the emergency department. Patient was seen on in the emergency department for abdominal pain. The pain was epigastric and right upper quadrant. He did have a Suero sign at the time of his ultrasound. His ultrasound showed stones but no gallbladder wall thickening and no pericholecystic fluid. After some pain medication and IV fluids the pain subsided enough that he was discharged. His white count was not elevated. He now has minimal symptoms in the right upper quadrant. He has been avoiding fatty foods since his ER visit. He does state that if he deep takes a deep breath he has pain in the right upper quadrant. Sometimes the pain goes into the back. He denies any fevers or chills. Laparoscopic cholecystectomy was recommended. Risks, benefits and complications were reviewed. Questions were entertained and answered to his satisfaction and he wished to proceed. Findings: Numerous gallstones. Adhesions of omentum to the peritoneal lining. Procedure Description: After informed consent was obtained the patient was brought to the operating room, placed in a supine position and monitors were applied. SCDs were applied to his lower extremities and he was placed under general anesthesia and intubated without difficulty. The Hair was clipped off the abdomen. His abdomen was then prepped and draped in a sterile fashion using ChloraPrep. At this point a timeout was done and the patient's name, date of , procedure type, allergies to medications, metal in his body, antibiotic and DVT prophylaxis were reviewed. Fire risk was assessed. At this point 1% Lidocaine was injected just above the umbilicus into the dermis and subcutaneous tissue. A 5 mm incision was made with an 11 blade. The skin next to the incision was grasped with penetrating towel clamps and while pulling up on the skin a 5 mm port was placed under direct visualization. The abdomen was insuflated and then 3 more ports were placed. A 12 mm port was placed in the subxiphoid area and two 5 mm ports were placed in the right upper quadrant. The liver was inspected and was noticed to have fatty infiltration. The patient's bed was then turned to the left and his head was brought up. Omentum was noted to be adhered to the peritoneal wall just below the right costal margin. This was taken down with cautery. Omentum was then also noted to be adhered to the right lobe of the liver. The omentum was taken down with cautery. At this point I was able to visualize the Gallbladder. The gallbladder was grasped at the body and pushed towards the right shoulder, this allowed me to visualize the neck of the gallbladder. The neck was grasped and pulled towards the right flank and down allowing me to visualize the lymph node. Using a [place] dissector with cautery the lymph node was gently dissected away from the tissues and the fatty tissue was also dissected away. The cystic duct was identified and it was normal in size. The duct was dissected 360 degrees using the [place] dissector in order for me to visualize its entrance into the gallbladder. Liver was noted behind it. There were no other structures right behind. Critical view was achieved. 3 clips were placed one proximal and 2 distal and the cystic duct was cut. The cystic artery was then identified and dissected 360 degrees. It was located just medial to the cystic duct. It was visualized going into the gallbladder. Once dissected 3 more clips were placed one proximal and 2 distal and the artery was cut. Using the hook dissector the gallbladder was then dissected away from the liver bed. I did puncture the Gallbladder and bile leak out. This was irrigated and suctioned out. Multiple stones were noted. The Gallbladder was placed into an Endo Catch bag and pulled through the 12 mm port site. Due to the number of stones I did have to enlarge the 12 mm port incision. The 12 mm port was placed back into the abdomen under direct visualization. The incision was closed around the port with penetrating towel clamp. The liver bed was inspected and there was some bleeding was noted. The liver bed was cuaterized. Surgicell was applied to the bed and a Raytake was applied over the surgicell. Pressure was applied. The abdomen was then irrigated with a 5 Liters of normal saline until the effluent was clear. The surgicell and Raytake was removed. There was one small spot that was still bleeding. It was cauterized and Floseal was applied to the liver bed. Once all the fluid was suctioned out, the rest of the local anesthetic mixture was injected above the liver to help with postoperative right shoulder pain. The subxiphoid incision was closed with a 0 Vicryl figure of eight suture using the [place] Cohn. The 12 mm and the 2 right upper quadrant ports were removed under direct visualization and no bleeding was noted from the fascia. The abdomen was deflated completely and lastly the umbilical port was removed. The skin was cleaned and the incisions were closed with 4-0 Vicryl. The skin was dried and skin affix was applied over the closed incisions. Needle and sponge counts were correct at the end of the case. At this point the patient was woken up, extubated and taken back to recovery in stable condition. There were no immediate complications.
== END 2020-01-16 15:50 | disposition home or self-care (01) ==
PROVIDERS: PCP Nurse Practitioner; Visit Provider Surgery
PROC: 0FT44ZZ Resection of Gallbladder, Percutaneous Endoscopic Approach (ICD-10-PCS; CPT 47562; principal; 2020-01-16 10:00)
DX: K80.20 Calculus of gallbladder without cholecystitis without obstruction (principal); I10 Essential (primary) hypertension; G47.30 Sleep apnea, unspecified; E66.9 Obesity, unspecified
CPT/HCPCS: 47562; 88304; J0295; J1100; J1885; J2001; J2405; J2704; J3475

== ENCOUNTER 2020-02-06 10:15 | Outpatient (CLI) | payer BC, SELFPAY ==
--- NOTE | 2020-02-06 10:00 | DI.RAD_ITS ---
EXAM: XR KNEE LT 4V AP,LAT,SHAMEKA,PAT CLINICAL HISTORY: pain TECHNIQUE: COMPARISON: No exams were available for comparison FINDINGS: Four views were obtained. The cartilaginous joint spaces appear fairly well maintained. No bony or soft tissue abnormality seen. IMPRESSION: Negative examination of the knee. RADIATION DOSE DELIVERED: Total DLP
== END 2020-02-06 10:35 ==
PROVIDERS: PCP Nurse Practitioner; Referring Provider Nurse Practitioner; Visit Provider Orthopaedic Surgery
DX: M25.562 Pain in left knee (principal)
CPT/HCPCS: 73564

== ENCOUNTER 2020-09-09 01:51 | Outpatient (CLI) | payer BC, SELFPAY ==
--- NOTE | 2020-09-09 07:30 | DI.CT_ITS ---
Exam(s) CT ABDOMEN WO/W EXAM: CT ABDOMEN WO/W CLINICAL HISTORY: f/u left adrenal mass,e27.8 TECHNIQUE: COMPARISON: CT CT ABDOMEN WO/W from 09/21/2019 FINDINGS: CT examination of the upper abdomen was performed with initial noncontrast examination followed by ve nous phase and 15 delayed phase imaging with intravenous infusion of 100 cc of Omnipaque 350. Previously described left adrenal nodules, which measured reportedly 10 millimeters and 14 millimeter s in diameter respectively on prior examination of September 2019, are unchanged on today's examination. These are again noted to show low attenuation on precontrast examination consistent with benign adren al adenoma. Note is again made of hepatic steatosis. No focal hepatic lesion identified. Prior cholecystectomy noted. Pancreas and spleen appear intact. Kidneys are unremarkable in appearance and show normal co rtical enhancement. No hydronephrosis or nephrolithiasis. No abnormality of visualized bowel. Visualized lung bases are clear. IMPRESSION: Stable left adrenal nodules have appearance consistent with benign adenoma. No further follow-up recommended. RADIATION DOSE DELIVERED: 2,124.79mGy.cm Total DLP RADIATION OPTIMIZATION: All CT scans at this facility use at least one of these dose optimization te chniques: automated exposure control; mA and/or kV adjustment per patient size (includes targeted exa ms where dose is matched to clinical indication); or iterative reconstruction.
[2020-09-09] MEDS: Breeza Beverage 473 ML BTL PO (10:05)
[2020-09-09] MEDS: Omnipaque 350 MG/ML 100 ML BTL IJ (10:25)
[2020-09-09] MEDS: Normal Saline Flush 10 ML SYR IVP (10:26)
[2020-09-09] MEDS: Normal Saline - Diluent 50 ML VIAL IV (10:26)
== END 2020-09-09 02:11 ==
PROVIDERS: PCP Nurse Practitioner; Visit Provider Nurse Practitioner
DX: E27.8 Other specified disorders of adrenal gland (principal); D35.02 Benign neoplasm of left adrenal gland
CPT/HCPCS: 74170; J3490

== ENCOUNTER 2021-04-09 03:33 | Outpatient (CLI) | payer BC, SELFPAY ==
--- NOTE | 2021-04-09 15:00 | NS.NUTBLAN_ITS ---
Steven was referred for nutritional counseling for diabetes self management and weight management education. Newly diagnosed with Dm2. Strong family history of DM2. 5'5 244 lbs, BMI 39.9 PMH: obesity, Dm2, HTN, elevated trig, low HDL, Depression. Most recent A1C: 9.1%. Meds: metformin 500 mg BID, lisinopril, wellbutrin. Diet Recall: mostly processed high carb foods. Stveen reports depression for last couple of years leading to increased intake of processed carbs and more sedentary life style. He noticed when he binged on carbs, he felt happier. Mood being treated with wellbutrin to aid in carb craving/depression. Session today focused on how to reverse DM2 dx by following lower carb intake (80-100 grams daily) and increasing intake of lean protein, non starchy vegetables and healthy fats. Provided sample meal plans. Encouraged daily exercise of 20-30 minutes. Also, reviewed ideal blood sugar levels and plan for sick days. In view of weight, lab values appears to be developing metabolic syndrome. Goal for next 3 months is for a 10% weight loss (24 lbs). Suspect 10% weight loss will lower A1C, decrease BP and normalize lipids. No follow up planned at this time. Will follow up by phone in 4 weeks.
== END 2021-04-09 03:34 | disposition home or self-care (01) ==
LOC: DS 03:33
PROVIDERS: PCP Nurse Practitioner; Visit Provider Dietitian, Registered
DX: Z71.3 Dietary counseling and surveillance (principal); E11.69 Type 2 diabetes mellitus with other specified complication; E66.9 Obesity, unspecified; Z79.84 Long term (current) use of oral hypoglycemic drugs
CPT/HCPCS: 97802

== ENCOUNTER 2021-09-10 02:43 | Outpatient (CLI) | payer BC, SELFPAY ==
[2021-09-10 09:39] LABS: ALT 29 U/L (16-63); AST 13 U/L (15-37); Alkaline Phosphatase 62 U/L (46-116); Anion Gap 11.7 mmol/L (3-11); BUN 16 mg/dL (7-18); Bilirubin, Total 1.2 mg/dL (0.2-1.0); CO2 25.3 mmol/L (21.0-32.0); CREATININE 0.9 mg/dL (0.70-1.30); Calcium 8.5 mg/dL (8.5-10.1); Calculated LDL 74 mg/dL (<100); Chloride 106 mmol/L (98-107); Cholesterol 133 mg/dL (<200); Glucose 116 mg/dL (74-106); HDL Cholesterol 34 mg/dL (40-60); Potassium 4.5 mmol/L (3.5-5.1); Sodium 143 mmol/L (136-145); Total Protein 6.8 g/dL (6.4-8.2); Triglyceride 126 mg/dL (<150)
--- NOTE | 2021-09-15 13:38 | W.DIABETESNO ---
Date of service: 09/15/21 Time of Service: 13:38 Diabetes Note Reason for Visit: dm NOTE: Brian returns after 6 months and has lost 26 lbs (10% of initial weight of 244 lbs) and has reduced his A1C from 9.1% to 5.7%. Most recent labs (09/10/21) indicates big improvements in lipids as well. Chol/LDL and trig all wnl, HDL continues to be on lower end. Encouraged daily exercise to help increase HDL. DM meds: 500 mg metformin BID. Reports feeling well however had an episode or two of feeling light headed. Do not suspect low blood sugars as continues to include complex carbs in diet and metformin typically does not cause hypoglycemia. He may benefit from reduction of Dm and BP meds. Reviewed meal plans and encouraged increased variety. No follow up planned at this time. Time Spent in Nutritional Counseling and Treatment: 20
== END 2021-09-10 02:44 | disposition home or self-care (01) ==
LOC: LBO 02:45
PROVIDERS: PCP Nurse Practitioner; Visit Provider Nurse Practitioner
DX: E78.6 Lipoprotein deficiency (principal); I10 Essential (primary) hypertension; R73.01 Impaired fasting glucose
CPT/HCPCS: 36415; 80053; 80061

== ENCOUNTER 2022-09-15 09:14 | Day surgery (SDC) | payer OTHER, SELFPAY ==
[2022-09-15 09:25] VITALS: BP 122/92; PULSE 79; RESP 16; TEMP 36.5; O2SAT 96
[2022-09-15] MEDS: Lactated Ringers 1,000 ML 80 ML IV (10:07)
--- NOTE | 2022-09-15 10:32 | W.ANESPRE ---
General Info Date of Service Date Performed: 09/15/22 Height: 5 ft 5 in Weight: 97 kg Body Mass Index (BMI): 35.6 Surgical Procedure: Operation Date: 09/15/22 10:05 Proposed Procedure Side Surgeon sasha Portillo MD Meds Allergies and Home Medications Allergies Allergy/AdvReac Type Severity Reaction Status Date / Time house dust mite Allergy Mild Verified 09/15/22 09:22 mold Allergy Verified 09/15/22 09:22 pollen Allergy Unknown Uncoded 09/14/22 12:34 Home Medication Medication Instructions Recorded flaxseed oil 1,000 mg capsule 1,000 mg PO DAILY 12/14/16 cholecalciferol (vitamin D3) 100 4,000 unit PO DAILY 06/07/19 mcg (4,000 unit) capsule acetaminophen 500 mg tablet 1,000 mg PO Q6H PRN 01/11/20 ibuprofen 200 mg tablet 400 mg PO Q6H PRN 01/11/20 bupropion HCl 150 mg 24 hr tablet, 150 mg PO QAM #90 tabs 04/27/22 extended release (Wellbutrin XL) lisinopril 20 mg tablet 20 mg PO DAILY #90 tabs 04/27/22 metformin 500 mg tablet See Rx Instructions .Route 04/27/22 .COMPLEX #180 tabs sertraline 100 mg tablet 150 mg PO DAILY #135 tab-caps 04/27/22 Current Visit Medications: Current Medications Generic Name Dose Route Start Last Admin Trade Name Freq PRN Reason Stop Dose Admin Ringer's Solution 1,000 mls @ 80 mls/hr 09/15/22 06:00 09/15/22 10:07 IV 10/14/22 23:59 80 mls/hr INFUSION JARRETT Administration IV Miscellaneous Supplies 1 each 09/15/22 06:00 Iv Access IV 10/14/22 23:59 DIRECTED JARRETT Sodium Chloride 0 ml 09/15/22 06:00 Normal Saline Flush 10 Ml Syr IV 10/14/22 23:59 PRN PRN Sodium Chloride 0 ml 09/15/22 06:00 Normal Saline 10 Ml Vial IJ 10/14/22 23:59 DIRECTED PRN Sterile Water 0 ml 09/15/22 06:00 Water,Injection,Sterile 10 Ml Vial IJ 10/14/22 23:59 DIRECTED PRN PFSH Active Problems Active Problems: Problem Status Onset Code Diabetes mellitus type 2 in obese E11.69, E66.9 Pyogenic granuloma of oral mucosa K13.4 Abscess of palate K12.2 No-show for appointment Z53.29 Low HDL (under 40) E78.6 IFG (impaired fasting glucose) 07/12/17 R73.01 HTN (hypertension) I10 Depression 10/10/13 F32.9 Postop check Z09 Torn ACL S83.519A Internal derangement of knee Medical History Medical History Adrenal mass, left Depression (10/10/13) 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) Environmental allergies (12/14/16) Family history of chronic cholecystitis Gastroesophageal reflux disease (06/10/11) Hepatic steatosis HTN (hypertension) IFG (impaired fasting glucose) (07/12/17) Kidney stone Low HDL (under 40) Migraine Obesity ROSA M (obstructive sleep apnea) Other and unspecified hyperlipidemia (06/10/11) FRS 5%; PCEq 3.1% Pre-diabetes Surgical History Surgical History H/O umbilical hernia repair History of laparoscopic cholecystectomy (~01/16/20) History of tonsillectomy and adenoidectomy Tobacco Smoking/Tobacco Use Status: Never Alcohol Alcohol Intake: current Alcohol intake frequency: holidays/special occasions only Alcohol type: beer and hard liquor Substance Use Substance use: Never Substance use type: does not use Vital Signs and Lab Results Vital Signs Most Recent Vital Signs in EMR: Most Recent Vital Signs Temp Pulse Resp BP Pulse Ox 36.5 C 79 16 122/92 H 96 09/15/22 09:25 09/15/22 09:25 09/15/22 09:25 09/15/22 09:25 09/15/22 09:25 Point of Care Results Point of Care Results: Finger Stick Blood Glucose 102 09/15/22 10:09 Lab Results Blood Type / Crossmatch: No Data to Display Complete Blood Count: No Data to Display Complete Metabolic Panel: Hemoglobin A1c 5.9 % (4.5-5.7) H 09/13/22 13:17 Liver Function Panel: No Data to Display Coagulation Panel: No Data to Display Cardiac Panel: No Data to Display Arterial Blood Gas: No Data to Display Venous Blood Gas: No Data to Display Pancreas Panel: No Data to Display Thyroid Panel: No Data to Display Infectious Disease: No Data to Display Blood Cultures: No Data to Display Toxicology Panel: No Data to Display Anesthesia Assessment and Plan Anesthesia History Personal History: No History of Anesthesia Complications Family History: No Family History of Anesthesia Complications Exercise Tolerance Exercise Tolerance: Metabolic Equivalents>4 Pertinent Negatives Pertinent Negatives: No Symptoms of GERD, No Major Cardiovascular Symptoms or Complaints, No Major Pulmonary Symptoms or Complaints and No History of CVA/TIA Cardiac & Pulmonary Exam Cardiac Exam: Normal S1/S2 Heart Sounds Pulmonary Exam: Clear Bilateral Breath Sounds Implantable Cardiac Device Does patient have a Pacemaker or an ICD?: No Airway Exam Known Difficult Airway: No Mallampati Class: 3 Mouth Opening: Normal (> 3cm) Thyromental Distance: Greater than 3 cm Facial Hair: Full Miguel Neck Range of Motion: Full ROM Neck Circumference: Thick Teeth Condition: Normal Dentition and Loose or Chipped (several chipped teeth, none loose) ASA Classification ASA Score: ASA 2 Emergency Case?: No NPO Status NPO Status: NPO Clears >2 hours, Solids >8 hours and NPO Clear Liquids>2 hours Anesthesia Plan Resuscitation Status: Full Code Anesthesia Technique: General Anesthesia Airway Planned: Natural Airway Monitors Used: Standard Monitors
--- NOTE | 2022-09-15 10:47 | W.COLOREPORT ---
Date of service: 09/15/22 Time of Service: 10:48 Colonoscopy Report Procedure Description: Procedures performed: 1. Colonoscopy with snare polypectomy x1 2. Cold forceps polypectomy x2 Preoperative diagnosis: Screening colonoscopy Postoperative diagnosis: Colon polyps, grade 1 internal hemorrhoids Surgeon: Eric Portillo Anesthesia: Ami Indication for procedure: The patient is a 52-year-old man who has never had a colonoscopy before. There is no family history of colon cancer. He is not having any symptoms. Due for his for screening. Findings: In the cecum a small 2-3 mm sessile polyp was removed with cold forceps technique. In the transverse colon a 3-5 mm sessile polyp was removed with hot snare technique. In the rectum another 2-3 mm adenomatous?appearing polyp was removed with cold forceps technique. No obvious or significant diverticular disease was seen. Grade 1 internal hemorrhoids were noted. Surveillance/follow-up recommendations: 3-10 years pending path results on the polyps. If villous or sessile serrated histology then 3 years. If simple adenomas then 7-10 years. If they are all hyperplastic by chance than 10 years. Complications: None Blood loss: Minimal Specimens:?? YES Quality of Prep:?? Good Procedure in detail: Written consent was obtained from the patient who was in agreement with the risks, benefits and indications of the procedure.? We went to the endoscopy suite and laid the patient in left lateral decubitus position.? Anesthesia was administered which was tolerated well.? A timeout was performed and when we are all in agreement we began the procedure. Digital rectal exam and visual examination was performed and within normal limits.? A well?lubricated colonoscope was advanced without difficulty all the way to the cecum identified by the ileocecal valve, and triangular folds and appendiceal orifice.? It was then slowly withdrawn.?? Retroflexion was performed in the rectum.? The findings/interventions are noted above. The scope was then removed and the patient tolerated the procedure well and was then taken back to the PACU in hemodynamically stable condition.
[2022-09-15 10:52] VITALS: BMI 35.6
--- NOTE | 2022-09-15 11:23 | BOWEL_PTH ---
PATIENT: Steven Moctezuma JR LOC: [facility] U#:[id number] AGE/SX: 52/M ROOM: RE09/15/[address]: Poli Portillo : 1970 BED: DIS: 09/15/2022 SPEC #: [id number] RECD: 09/15/22 17:44 STATUS: [facility] #: [id number] BRIJESH: 09/15/22 11:[address]: Poli Portillo DEPT: Surgical Specimen RECD BY: Ally Padilla ENTERED: 09/15/22 17:45 SP TYPE: Bowel OTHR DR: Yue Kapoor APRN Tissues: 1 - BIOPSY BOWEL 2 - BIOPSY BOWEL 3 - BIOPSY BOWEL Procedures: GROSS AND MICRO LEVEL 4 Comments: [id number]
[2022-09-15 11:36] VITALS: BP 109/87; PULSE 89; RESP 16; TEMP 36.2; O2SAT 95
[2022-09-15 12:06] VITALS: BP 128/90; PULSE 90; RESP 18; TEMP 36.3; O2SAT 95
--- NOTE | 2022-09-15 13:42 | W.ANESPOSTOP ---
Postoperative Evaluation Date, Time and Location Date Performed: 09/15/22 Time Performed: 12:10 Patient Location: Day Surgery Unit Vital Signs Most Recent Imported Vital Signs: Most Recent Vital Signs Temp Pulse Resp BP Pulse Ox 36.3 C L 90 18 128/90 95 09/15/22 12:06 09/15/22 12:06 09/15/22 12:06 09/15/22 12:06 09/15/22 12:06 Pain Score Most Recent Pain Score: Most Recent Pain Score Pain Level 0 09/15/22 12:06 Assessment Mental Status: Awake (Alert & Oriented to Patient Baseline) Airway and Respiratory Function: Patent airway with normal (patient baseline) respiratory exam Cardiovascular Function: Hemodynamically Stable Hydration Status: Adequately Hydrated Nausea & Vomiting: No Nausea or Vomiting Pain: Pt. Denies Any Pain Peripheral Nerve Block: Patient did not receive a nerve block
== END 2022-09-15 12:36 | disposition home or self-care (01) ==
PROVIDERS: PCP Nurse Practitioner; Visit Provider Student in an Organized Health Care Education/Training Program
PROC: 0DJD8ZZ Inspection of Lower Intestinal Tract, Via Natural or Artificial Opening Endoscopic (ICD-10-PCS; CPT 45378; principal; 2022-09-15 10:00)
DX: Z12.11 Encounter for screening for malignant neoplasm of colon (principal); K63.5 Polyp of colon; K64.0 First degree hemorrhoids
CPT/HCPCS: 45385; 45380; 88305

== ENCOUNTER 2023-03-10 14:12 | Outpatient (CLI) | payer OTHER, SELFPAY ==
[2023-03-10 08:11] LABS: Abs Immature Grans 0.04 10^3/uL (0.0-0.06); Absolute Basophil Count 0.04 10^3/uL (0.0-0.2); Absolute Eosinophil Count 0.12 10^3/uL (0.0-0.7); Absolute Lymphocyte Count 1.42 10^3/uL (1.2-3.4); Absolute Monocyte Count 0.78 10^3/uL (0.1-0.8); Absolute Neutrophil Count 6.22 10^3/uL (1.2-6.7); Basophils % 0.5; Eosinophils % 1.4; HCT 45.7 % (40.0-50.0); Immature Grans % 0.5; Lymphocytes % 16.5; MCH 27.6 pg (27.0-33.0); MCHC 32.8 % (32.0-36.0); MCV 84 fL (80-95); MPV 10.2 fL (8.0-11.0); Neutrophils % 72.1; Platelet Count 202 10^3/uL (130-400); RBC 5.44 10^6/uL (4.36-5.78); RDW 12.8 % (11.8-14.1); RDW-SD 38.5 fL; WBC 8.62 10^3/uL (4.4-10.8)
[2023-03-10 08:43] LABS: ALT 41 U/L (16-63); AST 16 U/L (15-37); Albumin 3.8 g/dL (3.4-5.0); Alkaline Phosphatase 70 U/L (46-116); Anion Gap 7.2 mmol/L (3-11); BUN 13 mg/dL (7-18); Bilirubin, Total 0.9 mg/dL (0.2-1.0); CO2 29.8 mmol/L (21.0-32.0); Calcium 8.9 mg/dL (8.5-10.1); Calculated LDL 104 mg/dL (<100); Chloride 105 mmol/L (98-107); Cholesterol 167 mg/dL (<200); Estimated GFR 89.44 (mL/min/1.73m2); Glucose 142 mg/dL (74-106); HDL Cholesterol 37 mg/dL (40-60); Potassium 4.1 mmol/L (3.5-5.1); Sodium 142 mmol/L (136-145); Total Protein 7.2 g/dL (6.4-8.2); Triglyceride 134 mg/dL (<150)
== END 2023-03-10 14:13 | disposition home or self-care (01) ==
LOC: LBO 14:12
PROVIDERS: PCP Nurse Practitioner; Visit Provider Nurse Practitioner
DX: E11.69 Type 2 diabetes mellitus with other specified complication (principal); E66.9 Obesity, unspecified; I10 Essential (primary) hypertension; J45.909 Unspecified asthma, uncomplicated
CPT/HCPCS: 36415; 80053; 80061; 85025

== ENCOUNTER 2024-11-29 17:21 | Outpatient (CLI) | payer BC, SELFPAY ==
--- NOTE | 2024-11-29 | DI.RAD_ITS ---
Exam(s) XR KNEE RT 3V AP,LAT,SHAMEKA EXAM: XR KNEE RT 3V AP,LAT,SHAMEKA CLINICAL HISTORY: Acute pain in RT knee. TECHNIQUE: 2D digital imaging was performed. COMPARISON: CR XR KNEE LT 4V AP,LAT,SHAMEKA,PAT from 02/06/2020 FINDINGS: 3 views No evidence of fracture but there does appear to be a small joint effusion which may signify internal derangement. There is no joint space narrowing. No degenerative changes nor osseous lesions. IMPRESSION: No acute osseous findings but there is a joint effusion which may signify internal derangement DATA REPOSITORY: RADIATION DOSE DELIVERED:
--- NOTE | 2024-11-29 19:03 | DI.VRAD_ITS ---
PROCEDURE INFORMATION: Exam: XR Right Knee Exam date and time: 11/29/2024 18:47 Age: 54 years old Clinical indication: Injury or trauma; Other: Jumping injury; Work related; Sprain or strain; Patella or knee; Right TECHNIQUE: Imaging protocol: Radiologic exam of the right knee. Views: 3 views. COMPARISON: No relevant prior studies available. FINDINGS: Bones/joints: No acute fracture or subluxation. Trace joint fluid. Soft tissues: Unremarkable. IMPRESSION: 1. No acute bony pathology. 2. Trace joint fluid. Dictated and Authenticated by: Maddi Crisostomo MD. Orderin Carolee Crockett MD
== END 2024-11-29 17:41 ==
PROVIDERS: PCP Nurse Practitioner; Visit Provider Nurse Practitioner Family
DX: M25.561 Pain in right knee (principal)
CPT/HCPCS: 73562